=== PATIENT | female | born 1945 | race Caucasian/White ===

== ENCOUNTER 2023-01-02 07:36 | Day surgery (SDC) | payer BC ==
[2022-12-30 11:06] LABS: BASOPHILS % (AUTO) 0.8 % (0-1); EOSINOPHILS # (AUTO) 0.1 X10'3 (0-0.9); EOSINOPHILS % (AUTO) 1.2 % (0-6); LYMPHOCYTES # (AUTO) 1.4 X10'3 (1.1-4.8); LYMPHOCYTES % (AUTO) 27.5 % (21-51); MEAN CORPUSCULAR HEMOGLOBIN 28.9 PG (27.0-31.0); MEAN CORPUSCULAR HGB CONC 33.9 g/dL (33.0-36.5); MEAN CORPUSCULAR VOLUME 85.2 FL (78-98); MEAN PLATELET VOLUME 8.1 FL (7.4-10.4); MONOCYTES # (AUTO) 0.5 X10'3 (0-0.9); MONOCYTES % (AUTO) 8.6 % (2-12); NEUTROPHILS # (AUTO) 3.2 X10'3 (1.8-7.7); NEUTROPHILS % (AUTO) 61.9 % (42-75); PRE OP HEMATOCRIT 37.1 % (35.0-45.0); PRE OP HEMOGLOBIN 12.6 g/dL (12.0-16.0); PRE OP PLATELET COUNT 184 X10'3 (140-440); RED BLOOD COUNT 4.36 X10'6 (4.20-5.60); RED CELL DISTRIBUTION WIDTH 13.9 % (11.5-14.5)
[2022-12-30 11:27] LABS: ALBUMIN 3.7 G/DL (3.4-5.0); ALBUMIN/GLOBULIN RATIO 1.1 (1.1-1.5); ALKALINE PHOSPHATASE 66 IU/L (46-116); BLOOD UREA NITROGEN 26 MG/DL (7-18); BUN/CREATININE RATIO 23.2 (10.0-20.0); CALCIUM 8.8 MG/DL (8.5-10.1); CHLORIDE 105 MMOL/L (99-107); CREATININE 1.12 MG/DL (0.40-0.90); PRE OP ALT 20 U/L (30-65); PRE OP ANION GAP 9 (8-16); PRE OP AST 20 U/L (10-37); PRE OP BILIRUB, TOTAL 0.4 MG/DL (0.0-1.0); PRE OP GLUCOSE 136 MG/DL (70-104); PRE OP POTASSIUM 3.8 MMOL/L (3.4-5.1); PRE OP SODIUM 140 MMOL/L (135-145); TOTAL PROTEIN 7.1 G/DL (6.4-8.2); eGFR 47 ML/MIN
[2023-01-02] VITALS (8 sets, daily range): BP systolic 128–146; BP diastolic 48–68
[~2023-01-02] VITALS: Ht 160 cm; Wt 100.3 kg
[~2023-01-02 07:36] MED LIST: AMLO5TAB16 PO; BISO10TA16 PO; CALC-102 PO; DOCUMENT DATE & TIME OF BETA-BLOCKER PO ONE; ESOM40CA PO; HYDR25TA5 PO; LOSA25TA96 PO; MONT-40 PO; MULT-1141 PO; OXYB5TAB16 PO; TYLENOL; cefazolin 2gm/D5W 100mL 100 ML IV ONE; famotidine 20mg tablet PO ONE; ringers solution, lacted 1,000 ML IV SCH
[2023-01-02] MEDS ORDERED: proCHLORperazine 10 MG/2 ml inj IV PRN (10:10)
[2023-01-02] MEDS ORDERED: meperidine/PF 25mg/ml syringe IV PRN ×3 (10:10)
[2023-01-02] MEDS ORDERED: labetalol 20mg/4ml (5mg/ml) syringe IV PRN (10:10)
[2023-01-02] MEDS ORDERED: ondansetron/PF 4mg/2ml inj IV PRN (10:10)
[2023-01-02] MEDS ORDERED: ringers solution, lacted 1,000 ML IV SCH (10:10)
[2023-01-02] MEDS ORDERED: acetaminophen 1,000mg/100ml IV 100 ML IV PRN (10:10)
[2023-01-02] MEDS ORDERED: morphine 4 MG/ML inj SYRINge IV PRN (10:10)
[2023-01-02] MEDS ORDERED: morphine 2 MG/ML inj. syringe IV PRN (10:10)
[2023-01-02] MEDS ORDERED: hydrALAZINE 20mg/ml inj. IV PRN (10:10)
[2023-01-02] MEDS ORDERED: LIDOcaine 0.5% (5mg/ml) 50ml vial ONE (10:44)
[2023-01-02] MEDS ORDERED: BUPIVAcaine/PF 2.5 mg/ml (0.25%) 30ml vial ONE (10:44)
[2023-01-02] MEDS ORDERED: fentaNYL/PF 50MCG/1 ML 2ML syringe ONE (11:08)
[2023-01-02] MEDS ORDERED: midazolam 1 mg/ML 2ml injection ONE (11:28)
[2023-01-02] MEDS ORDERED: propofol inj 20 ML IV ONE (11:28)
--- NOTE | 2023-01-02 11:39 | NUR ---
Received from OR via , accompanied by Anesthesiologist DR MATHUR and report given by Anesthesiolgist. VSS IV IN LAC 20G NO ISSUES. DRESSING AND MAAME BANDAGE ON RIGHT HAND
--- NOTE | 2023-01-02 11:39 | NUR ---
Received from OR via , accompanied by Anesthesiologist DR MATHUR and report given by Anesthesiolgist. VSS. IV IN LAC 20G NO ISSUES. DRESSING AND MAAME BANDAGE ON RIGHT HAND. ROOM AIR WITH ICE ON R HAND Addendum: 01/02/23 at 1152 by Kim Rosenthal RN Amended: Links added.
[2023-01-02] MEDS ORDERED: BUPIVAcaine/PF 2.5 mg/ml (0.25%) 30ml vial IJ ONE (11:42)
--- NOTE | 2023-01-02 12:39 | NUR ---
PATIENT MEETS DISCHARGE CRITERIA. VSS. IV DC'D WITH NO ISSUES. WHEELED PATIENT TO HER CARE WHERE HER SON WAS WAITING Addendum: 01/02/23 at 1333 by Kim Rosenthal RN Amended: Links added.
== END 2023-01-02 12:39 | disposition home or self-care (01) ==
LOC: PAS 07:36
PROVIDERS: ATTEND Orthopaedic Surgery Hand Surgery
DX: G56.01 Carpal tunnel syndrome, right upper limb (principal); J44.9 Chronic obstructive pulmonary disease, unspecified; E66.9 Obesity, unspecified; Z68.39 Body mass index [BMI] 39.0-39.9, adult; E78.00 Pure hypercholesterolemia, unspecified; I10 Essential (primary) hypertension; Z79.899 Other long term (current) drug therapy; Z88.8 Allergy status to other drugs, medicaments and biological substances; Z98.890 Other specified postprocedural states; Z90.710 Acquired absence of both cervix and uterus; Z72.89 Other problems related to lifestyle; Z82.49 Family history of ischemic heart disease and other diseases of the circulatory system
CPT/HCPCS: 36415; 64721; 80053; 82948; 85025; 93005; J0131; J0690; J2250; J2704; J3010; J3490; J7030; J7120; Z7506; Z7512; A4215; A6449